=== PATIENT | female | born 1970 | race African-American/Black ===

== ENCOUNTER 2018-05-28 15:07 | Inpatient (IN) | payer OTHER ==
[2018-05-28 17:06] VITALS: BMI 30.7
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
[2018-05-28] MEDS ORDERED: NICOTINE POLACRILEX 2 MG GUM BC PRN (18:12)
[2018-05-28] MEDS ORDERED: MENTHOL/PHENOL 1 EACH UD MM PRN (18:12)
[2018-05-28] MEDS ORDERED: guaiFENesin/D-METHORPHAN HB 10 ML UNIT-DOSE CUPS PO PRN (18:12)
[2018-05-28] MEDS ORDERED: IBUPROFEN 400 MG TABLET (FP) PO PRN (18:12)
[2018-05-28] MEDS ORDERED: MAG HYDROX/AL HYDROX/SIMETH 30 ML UNIT-DOSE CUP PO PRN (18:12)
[2018-05-28] MEDS ORDERED: ACETAMINOPHEN 325 MG TABLET (FP) PO PRN (18:12)
[2018-05-28] MEDS ORDERED: MAGNESIUM HYDROX 2400MG/30ML ORAL SUSPENSION 30 ML CUP PO PRN (18:12)
[2018-05-28] MEDS ORDERED: P-EPHED 60MG/TRIPROLIDI 2.5MG TABLET PO PRN (18:12)
[2018-05-28] MEDS ORDERED: MAGNESIUM CITRATE 300 ML BOTTLE PO PRN (18:12)
[2018-05-28] MEDS ORDERED: ALBUTEROL SO4 8 GM HFA INHALER IH PRN (18:13)
[2018-05-28] MEDS ORDERED: ALBUTEROL SO4 0.083% IH SOL 2.5 MG/3 ML VIAL.NEB. NEB PRN (18:13)
[2018-05-28] MEDS: chlordiazePOXIDE HCL 25 MG CAPSULE PO PRN (19:46)
[2018-05-28] MEDS: chlordiazePOXIDE HCL 25 MG CAPSULE PO SCH (23:04)
[2018-05-28] MEDS: THIAMINE HCL 100 MG TABLET (FP) PO SCH (23:04)
[2018-05-28] MEDS: MELATONIN 5 MG TABLETS PO PRN (23:05)
[2018-05-28 23:08] LABS: URINE APPEARANCE CLEAR; URINE BILIRUBIN NEGATIVE (<2.0 mg/dL); URINE COLOR YELLOW; URINE GLUCOSE (UA) NEGATIVE (NEGATIVE); URINE KETONE NEGATIVE (NEGATIVE); URINE LEUK ESTERASE NEGATIVE (NEGATIVE); URINE NITRITE NEGATIVE (NEGATIVE); URINE PROTEIN 1+ (NEGATIVE); URINE UROBILINOGEN NEGATIVE mg/dL (0.2-1.0)
[2018-05-28 23:32] LABS: EPI CELLS RARE /HPF (FEW); URINE MUCUS RARE
[2018-05-29] MEDS: chlordiazePOXIDE HCL 25 MG CAPSULE PO SCH ×4 (05:38→23:27)
[2018-05-29] MEDS: PRENATAL VITAMINS W/ FOLIC ACID TABLET (FP) PO SCH (10:17)
[2018-05-29] MEDS ORDERED: FLU VACCINE QUAD 60 MCG/0.5 ML (MDV 18-19) IM ONE (12:00)
[2018-05-29 12:02] LABS: ALBUMIN 3.4 g/dl (3.4-5.0); ALK PHOS 71 U/L (45-117); ANION GAP 7 MMOL/L (8-16); BILIRUBIN,TOTAL 0.6 mg/dL (0.2-1); BLOOD UREA NITROGEN 11 mg/dL (7-18); CALCIUM 8.4 mg/dL (8.5-10.1); CHLORIDE 105 mmol/L (98-107); CO2 28 mmol/L (21-32); CREATININE 0.7 mg/dL (0.55-1.3); GLUCOSE,RANDOM 90 mg/dL (74-106); POTASSIUM 4.2 mmol/L (3.5-5.1); SGOT/AST 78 U/L (15-37); SGPT/ALT 51 U/L (13-61); SODIUM 140 mmol/L (136-145); TOT PROT 6.5 g/dl (6.4-8.2)
[2018-05-29 12:04] LABS: HEMATOCRIT 37.5 % (32.4-45.2); MCH 30.1 pg (25.7-33.7); MCHC 31.8 g/dl (32.0-36.0); MEAN CELL VOLUME 94.7 fl (80-96); MEAN PLT VOLUME 8.7 fl (7.5-11.1); PLATELET COUNT 196 K/MM3 (134-434); RBC 3.97 M/mm3 (3.60-5.2); RDW 14.9 % (11.6-15.6); WHITE BLOOD COUNT 4.7 K/mm3 (4.0-10.0)
--- NOTE | 2018-05-29 12:48 | PN ---
[facility] CIWA - CIWA Score Nausea/Vomitin-No Nausea/No Vomiting Muscle Tremors: 3 Anxiety: 3 Agitation: 3 Paroxysmal Sweats: 3 Orientation: 0-Oriented Tacttile Disturbances: 0-None Auditory Disturbances: 0-None Visual Disturbances: 0-None Headache: 0-None Present CIWA-Ar Total Score: 12 S Progress Note (SOAP) Subjective: stomach cramp sweats chills bodyaches irritable Objective: 05/29/18 12:48 Vital Signs Temperature 98.6 F 05/29/18 09:39 Pulse Rate 70 05/29/18 10:30 Respiratory Rate 16 05/29/18 09:39 Blood Pressure 135/71 05/29/18 09:39 O2 Sat by Pulse Oximetry (%) Laboratory Tests 05/28/18 05/29/18 05/29/18 22:00 07:50 07:50 WBC RBC Hgb Hct MCV MCH MCHC RDW Plt Count MPV Sodium 140 Potassium 4.2 Chloride 105 Carbon Dioxide 28 Anion Gap 7 L BUN 11 Creatinine 0.7 Creat Clearance w eGFR > 60 Random Glucose 90 Calcium 8.4 L Total Bilirubin 0.6 AST 78 H ALT 51 Alkaline Phosphatase 71 Total Protein 6.5 Albumin 3.4 Urine Color Yellow Urine Appearance Clear Urine pH 5.0 Ur Specific [place] 1.017 Urine Protein 1+ H Urine Glucose (UA) Negative Urine Ketones Negative Urine Blood 2+ H Urine Nitrite Negative Urine Bilirubin Negative Urine Urobilinogen Negative Ur Leukocyte Esterase Negative Urine WBC (Auto) 1 Urine RBC (Auto) <1 Ur Epithelial Cells Rare Urine Mucus Rare RPR Titer HIV 1&2 Antibody Screen Negative HIV P24 Antigen Negative 05/29/18 05/29/18 07:50 08:00 WBC 4.7 RBC 3.97 Hgb 12.0 Hct 37.5 MCV 94.7 MCH 30.1 MCHC 31.8 L RDW 14.9 Plt Count 196 MPV 8.7 Sodium Potassium Chloride Carbon Dioxide Anion Gap BUN Creatinine Creat Clearance w eGFR Random Glucose Calcium Total Bilirubin AST ALT Alkaline Phosphatase Total Protein Albumin Urine Color Urine Appearance Urine pH Ur Specific [place] Urine Protein Urine Glucose (UA) Urine Ketones Urine Blood Urine Nitrite Urine Bilirubin Urine Urobilinogen Ur Leukocyte Esterase Urine WBC (Auto) Urine RBC (Auto) Ur Epithelial Cells Urine Mucus RPR Titer Nonreactive HIV 1&2 Antibody Screen HIV P24 Antigen aaox3 ambulating no acute distress Assessment: 05/29/18 12:48 withdrawal sx Plan: continue detox increase fluids
[2018-05-29] MEDS: chlordiazePOXIDE HCL 25 MG CAPSULE PO PRN ×2 (14:52→22:14)
[2018-05-29] MEDS ORDERED: LOPERAMIDE HCL 2 MG CAPSULE PO PRN (15:48)
[2018-05-29] MEDS: THIAMINE HCL 100 MG TABLET (FP) PO SCH (22:14)
[2018-05-29] MEDS: MELATONIN 5 MG TABLETS PO PRN (22:14)
[2018-05-30] MEDS: chlordiazePOXIDE HCL 25 MG CAPSULE PO SCH ×2 (05:48→10:11)
[2018-05-30 09:33] VITALS: BP 122/68; PULSE 89; TEMP 97.7
[2018-05-30] MEDS: PRENATAL VITAMINS W/ FOLIC ACID TABLET (FP) PO SCH (10:11)
--- NOTE | 2018-05-30 12:53 | DS ---
[facility] Detox Discharge Summary Admission Date: 05/28/18 Discharge Date: 05/30/18 - History Present History: Alcohol Dependence Additional Comments: 47 years old female admitted on 05/28/18 for alcohol withdrawal sx insists to go home today that "must return to work" tomorrow patient stated that she is feeling better no tremor no gi distress sleep better last night patient agrees to follow up with [facility] health services for medical mental and addictions problems discuss 12 steps community self help groups and meetings to maintenance sobriety - Physical Exam Results Vital Signs: Vital Signs Temperature 97.7 F 05/30/18 09:33 Pulse Rate 89 05/30/18 09:33 Respiratory Rate 20 05/30/18 09:33 Blood Pressure 122/68 05/30/18 09:33 O2 Sat by Pulse Oximetry (%) Pertinent Admission Physical Exam Findings: alcohol withdrawal sx Vital Signs Temperature 97.7 F 05/30/18 09:33 Pulse Rate 89 05/30/18 09:33 Respiratory Rate 20 05/30/18 09:33 Blood Pressure 122/68 05/30/18 09:33 O2 Sat by Pulse Oximetry (%) Laboratory Last Values WBC 4.7 K/mm3 (4.0-10.0) 05/29/18 08:00 RBC 3.97 M/mm3 (3.60-5.2) 05/29/18 08:00 Hgb 12.0 GM/dL (10.7-15.3) 05/29/18 08:00 Hct 37.5 % (32.4-45.2) 05/29/18 08:00 MCV 94.7 fl (80-96) 05/29/18 08:00 MCH 30.1 pg (25.7-33.7) 05/29/18 08:00 MCHC 31.8 g/dl (32.0-36.0) L 05/29/18 08:00 RDW 14.9 % (11.6-15.6) 05/29/18 08:00 Plt Count 196 K/MM3 (134-434) 05/29/18 08:00 MPV 8.7 fl (7.5-11.1) 05/29/18 08:00 Sodium 140 mmol/L (136-145) 05/29/18 07:50 Potassium 4.2 mmol/L (3.5-5.1) 05/29/18 07:50 Chloride 105 mmol/L (98-107) 05/29/18 07:50 Carbon Dioxide 28 mmol/L (21-32) 05/29/18 07:50 Anion Gap 7 MMOL/L (8-16) L 05/29/18 07:50 BUN 11 mg/dL (7-18) 05/29/18 07:50 Creatinine 0.7 mg/dL (0.55-1.3) 05/29/18 07:50 Creat Clearance w eGFR > 60 (>60) 05/29/18 07:50 Random Glucose 90 mg/dL (74-106) 05/29/18 07:50 Calcium 8.4 mg/dL (8.5-10.1) L 05/29/18 07:50 Total Bilirubin 0.6 mg/dL (0.2-1) 05/29/18 07:50 AST 78 U/L (15-37) H 05/29/18 07:50 ALT 51 U/L (13-61) 05/29/18 07:50 Alkaline Phosphatase 71 U/L (45-117) 05/29/18 07:50 Total Protein 6.5 g/dl (6.4-8.2) 05/29/18 07:50 Albumin 3.4 g/dl (3.4-5.0) 05/29/18 07:50 Urine Color Yellow 05/28/18 22:00 Urine Appearance Clear 05/28/18 22:00 Urine pH 5.0 (5.0-8.0) 05/28/18 22:00 Ur Specific [place] 1.017 (1.010-1.035) 05/28/18 22:00 Urine Protein 1+ (NEGATIVE) H 05/28/18 22:00 Urine Glucose (UA) Negative (NEGATIVE) 05/28/18 22:00 Urine Ketones Negative (NEGATIVE) 05/28/18 22:00 Urine Blood 2+ (NEGATIVE) H 05/28/18 22:00 Urine Nitrite Negative (NEGATIVE) 05/28/18 22:00 Urine Bilirubin Negative (<2.0 mg/dL) 05/28/18 22:00 Urine Urobilinogen Negative mg/dL (0.2-1.0) 05/28/18 22:00 Ur Leukocyte Esterase Negative (NEGATIVE) 05/28/18 22:00 Urine WBC (Auto) 1 /hpf (3-5) 05/28/18 22:00 Urine RBC (Auto) <1 /hpf (0-3) 05/28/18 22:00 Ur Epithelial Cells Rare /HPF (FEW) 05/28/18 22:00 Urine Mucus Rare 05/28/18 22:00 RPR Titer Nonreactive (NONREACTIVE) 05/29/18 07:50 HIV 1&2 Antibody Screen Negative 05/29/18 07:50 HIV P24 Antigen Negative 05/29/18 07:50 lab noted - Treatment Hospital Course: Detox Protocol Followed, Responded well Patient has Accepted a Rehab Referral to: [facility] - Medication Discharge Medications: Ambulatory Orders NK [No Known Home Medication] 05/28/18 - Diagnosis (1) Alcohol dependence with uncomplicated withdrawal Status: Acute (2) Nicotine dependence Status: Acute Qualifiers: Nicotine product type: cigarettes Substance use status: in withdrawal Qualified Code(s): F17.213 - Nicotine dependence, cigarettes, with withdrawal - AMA Did Patient Leave Against Medical Advice: Yes
[2018-05-30] MEDS ORDERED: chlordiazePOXIDE 5 MG CAPSULE PO SCH (23:00)
[2018-05-31] MEDS ORDERED: chlordiazePOXIDE HCL 10 MG CAPSULE PO SCH (23:00)
== END 2018-05-30 10:36 | disposition left against medical advice (07) | DRG 770 ==
LOC: YASAS 15:07 → Y6N 18:41
PROVIDERS: ADMIT Neuromusculoskeletal Medicine & OMM; ATTEND Neuromusculoskeletal Medicine & OMM
PROC: HZ2ZZZZ Detoxification Services for Substance Abuse Treatment (ICD-10-PCS; principal; 2018-05-28)
DX: F10.230 Alcohol dependence with withdrawal, uncomplicated (principal); F17.210 Nicotine dependence, cigarettes, uncomplicated; F32.9 Major depressive disorder, single episode, unspecified; Z86.69 Personal history of other diseases of the nervous system and sense organs
CPT/HCPCS: 36415; 80053; 81003; 81015; 85027; 86593; 87389

== ENCOUNTER 2022-05-09 16:30 | Inpatient (IN) | payer OTHER ==
[2022-05-09 20:36] VITALS: BMI 18.8
[2022-05-09] MEDS ORDERED: IBUPROFEN 400 MG TABLET (FP) PO PRN (20:52)
[2022-05-09] MEDS ORDERED: NALOXONE HCL 0.4 MG/ML VIAL IM PRN (20:52)
[2022-05-09] MEDS ORDERED: LOPERAMIDE HCL 2 MG CAPSULE PO PRN (20:52)
[2022-05-09] MEDS ORDERED: MAG HYDROX/AL HYDROX/SIMETH 30 ML UNIT-DOSE CUP PO PRN (20:52)
[2022-05-09] MEDS ORDERED: IBUPROFEN 600 MG TABLET (FP) PO PRN (20:52)
[2022-05-09] MEDS ORDERED: NICOTINE POLACRILEX 2 MG GUM BUC PRN (20:52)
[2022-05-09] MEDS ORDERED: MAGNESIUM CITRATE 300 ML BOTTLE PO PRN (20:52)
[2022-05-09] MEDS ORDERED: P-EPHED 60MG/TRIPROLIDI 2.5MG TABLET PO PRN (20:52)
[2022-05-09] MEDS ORDERED: MAGNESIUM HYDROX 2400MG/30ML ORAL SUSPENSION 30 ML CUP PO PRN (20:52)
[2022-05-09] MEDS ORDERED: ACETAMINOPHEN 325 MG TABLET (FP) PO PRN ×2 (20:52)
[2022-05-09] MEDS ORDERED: ONDANSETRON *ODT* 4 MG TABLET SL PRN (20:52)
[2022-05-09] MEDS ORDERED: NALOXONE HCL (KLOXXADO) 8 MG SPRAY NS PRN (20:52)
[2022-05-09] MEDS ORDERED: BISMUTH SUBSALICYLATE 524 MG/30 ML PO PRN (20:52)
[2022-05-09] MEDS ORDERED: BENZOCAINE/MENTHOL (CHLORASEPTIC ) LOZENGE MM PRN (20:52)
[2022-05-09] MEDS ORDERED: chlordiazePOXIDE HCL 25 MG CAPSULE PO PRN (20:58)
[2022-05-09] MEDS: MELATONIN 5 MG TABLETS PO PRN (22:56)
[2022-05-09] MEDS: THIAMINE HCL 100 MG TABLET (FP) PO SCH (22:56)
[2022-05-09] MEDS: chlordiazePOXIDE HCL 25 MG CAPSULE PO SCH (22:57)
[2022-05-10] MEDS: chlordiazePOXIDE HCL 25 MG CAPSULE PO SCH ×4 (04:57→22:32)
[2022-05-10] MEDS: hydrOXYzine PAMOATE 25 MG CAPSULE (FP) PO PRN ×2 (10:44→21:17)
[2022-05-10] MEDS: METHOCARBAMOL 500 MG TABLET PO PRN ×2 (10:44→21:17)
[2022-05-10] MEDS: methaDONE HCL 10 MG TABLET (FOR DETOX USE ONLY) PO SCH (10:46)
[2022-05-10] MEDS: PRENATAL VITAMINS W/ FOLIC ACID TABLET (FP) PO SCH (10:47)
[2022-05-10 11:12] LABS: HEMOGLOBIN 11.6 GM/dL (10.7-15.3); MCHC 33.1 g/dl (32.0-36.0); MEAN CELL VOLUME 99.9 fl (80-96); MEAN PLT VOLUME 9.4 fl (7.5-11.1); PLATELET COUNT 105 10^3/uL (134-434); RDW 12.7 % (11.6-15.6); WHITE BLOOD COUNT 3.4 K/mm3 (4.0-10.0)
[2022-05-10 11:17] LABS: ALBUMIN 3.1 g/dl (3.4-5.0)
[2022-05-10 11:20] LABS: CREATININE 0.5 mg/dL (0.55-1.3)
[2022-05-10 11:21] LABS: TOT PROT 6.1 g/dl (6.4-8.2)
[2022-05-10 11:23] LABS: BILIRUBIN,TOTAL 0.5 mg/dL (0.2-1)
[2022-05-10] MEDS: DICYCLOMINE HCL 10 MG CAPSULE PO PRN (17:40)
[2022-05-10] MEDS: THIAMINE HCL 100 MG TABLET (FP) PO SCH (22:31)
[2022-05-10] MEDS: MELATONIN 5 MG TABLETS PO PRN (22:31)
[2022-05-10] MEDS: guaiFENesin 200 MG/10 ML 10 ML UNIT-DOSE CUPS PO PRN (22:33)
[2022-05-11] MEDS: chlordiazePOXIDE HCL 25 MG CAPSULE PO SCH ×4 (05:50→22:33)
[2022-05-11] MEDS: methaDONE HCL 10 MG TABLET (FOR DETOX USE ONLY) PO SCH (05:50)
[2022-05-11] MEDS: PRENATAL VITAMINS W/ FOLIC ACID TABLET (FP) PO SCH (10:52)
[2022-05-11] MEDS ORDERED: PANTOPRAZOLE 40 MG TABLET PO ONE (11:31)
[2022-05-11] MEDS: DICYCLOMINE HCL 10 MG CAPSULE PO PRN (19:12)
[2022-05-11] MEDS: MELATONIN 5 MG TABLETS PO PRN (22:32)
[2022-05-11] MEDS: THIAMINE HCL 100 MG TABLET (FP) PO SCH (22:33)
[2022-05-11] MEDS: guaiFENesin 200 MG/10 ML 10 ML UNIT-DOSE CUPS PO PRN (22:34)
[2022-05-11] MEDS: METHOCARBAMOL 500 MG TABLET PO PRN (22:34)
[2022-05-11] MEDS: hydrOXYzine PAMOATE 25 MG CAPSULE (FP) PO PRN (22:37)
[2022-05-12] MEDS ORDERED: chlordiazePOXIDE HCL 10 MG CAPSULE PO PRN
[2022-05-12] MEDS ORDERED: methaDONE 40 MG, methaDONE 20 MG PO SCH (06:00)
[2022-05-12] MEDS: chlordiazePOXIDE HCL 10 MG CAPSULE PO SCH ×4 (06:02→22:20)
[2022-05-12] MEDS: PANTOPRAZOLE 40 MG TABLET PO SCH (06:04)
[2022-05-12] MEDS: METHOCARBAMOL 500 MG TABLET PO PRN ×2 (06:04→17:48)
[2022-05-12] MEDS: methaDONE 40 MG, methaDONE 20 MG PO SCH (06:47)
[2022-05-12] MEDS: PRENATAL VITAMINS W/ FOLIC ACID TABLET (FP) PO SCH (10:26)
[2022-05-12] MEDS ORDERED: NICOTINE 10 MG CARTRIDGE (INHALER) IH PRN (11:13)
[2022-05-12] MEDS: hydrOXYzine PAMOATE 25 MG CAPSULE (FP) PO PRN (17:48)
[2022-05-12] MEDS: THIAMINE HCL 100 MG TABLET (FP) PO SCH (22:19)
[2022-05-12] MEDS: MELATONIN 5 MG TABLETS PO PRN (22:19)
[2022-05-13] MEDS: methaDONE 40 MG, methaDONE 20 MG PO SCH (05:31)
[2022-05-13] MEDS: chlordiazePOXIDE HCL 10 MG CAPSULE PO SCH ×2 (05:34→18:03)
[2022-05-13] MEDS: hydrOXYzine PAMOATE 25 MG CAPSULE (FP) PO PRN (05:37)
[2022-05-13] MEDS: PANTOPRAZOLE 40 MG TABLET PO SCH (06:52)
[2022-05-13] MEDS: PRENATAL VITAMINS W/ FOLIC ACID TABLET (FP) PO SCH (10:32)
[2022-05-13 21:26] VITALS: RESP 18
[2022-05-13] MEDS: THIAMINE HCL 100 MG TABLET (FP) PO SCH (22:17)
[2022-05-13] MEDS: MELATONIN 5 MG TABLETS PO PRN (22:17)
[2022-05-13] MEDS: METHOCARBAMOL 500 MG TABLET PO PRN (22:20)
[2022-05-14] MEDS ORDERED: chlordiazePOXIDE HCL 10 MG CAPSULE PO ONE (05:00)
[2022-05-14] MEDS: methaDONE 40 MG, methaDONE 20 MG PO SCH (06:09)
[2022-05-14] MEDS: PANTOPRAZOLE 40 MG TABLET PO SCH (06:10)
[2022-05-14 09:08] VITALS: BP 101/61; PULSE 61; TEMP 97.7
[2022-05-14] MEDS: PRENATAL VITAMINS W/ FOLIC ACID TABLET (FP) PO SCH (09:48)
== END 2022-05-14 10:10 | disposition home or self-care (01) | DRG 773 ==
LOC: YASAS 16:30 → Y3N 21:58
PROVIDERS: ADMIT Allergy & Immunology; ATTEND Psychiatry & Neurology Psychiatry
PROC: HZ2ZZZZ Detoxification Services for Substance Abuse Treatment (ICD-10-PCS; principal; 2022-05-09)
DX: F10.230 Alcohol dependence with withdrawal, uncomplicated (principal); F11.20 Opioid dependence, uncomplicated; F10.220 Alcohol dependence with intoxication, uncomplicated; F14.10 Cocaine abuse, uncomplicated; F17.220 Nicotine dependence, chewing tobacco, uncomplicated; D69.6 Thrombocytopenia, unspecified; K21.9 Gastro-esophageal reflux disease without esophagitis; R79.89 Other specified abnormal findings of blood chemistry; W06.XXXA Fall from bed, initial encounter; Y93.89 Activity, other specified; Y92.230 Patient room in hospital as the place of occurrence of the external cause; Z88.2 Allergy status to sulfonamides
CPT/HCPCS: 36415; 80053; 85027; 86780; C9803-CS; Q0162; U0003; U0005

== ENCOUNTER 2022-05-10 00:40 | Emergency (ER) | payer OTHER ==
[2022-05-10 00:45] VITALS: BP 98/61; PULSE 65; RESP 19; TEMP 97.6; BMI 25.6
== END 2022-05-10 03:53 | disposition home or self-care (01) ==
LOC: JER 00:40
DX: F10.920 Alcohol use, unspecified with intoxication, uncomplicated (principal); W01.0XXA Fall on same level from slipping, tripping and stumbling without subsequent striking against object, initial encounter
CPT/HCPCS: 70450-TC; 72125-TC; 99284-25